=== PATIENT | female | born 1965 | race Hispanic/Latino ===

== ENCOUNTER → 2017-08-17 | Day surgery (SDC) | payer OTHER ==
--- NOTE | 2017-08-15 16:11 | Diagnostic Imaging Report ---
PROCEDURE: Frontal and lateral views of the chest. COMPARISON: Chest radiograph 03/11/2017 INDICATIONS: PRE-OP ON RIGHT SHOULDER FINDINGS: Lines/tubes: None. Lungs: The lungs are well inflated and clear. There is no evidence of pneumonia or pulmonary edema. Pleura: There is no pleural effusion or pneumothorax. Heart and mediastinum: The heart and the mediastinum are normal. Bones: No acute bony abnormality. IMPRESSION: No acute cardiopulmonary disease. Dictated by: Dae Macias M.D. on 08/15/2017 at 16:10 Electronically approved by: Dae Macias M.D. on 08/15/2017 at 16:10
[~2017-08-17] MED LIST: ALBUTEROL SULF 0.083% NEB SOLN 3 ML NEB ONE; CEFAZOLIN SOD 2 GM/D5W 50ML 50 ML IV ONE; DEXAMETHASONE SOD PHOS INJ 4 MG/ML VIAL ONE; ESMOLOL HCL 100MG/10ML 10 MG/ML VIAL ONE; FENTANYL CITRATE/PF 100MCG/2 ML INJ ONE; GLYCOPYRROLATE INJ 1MG/ 5 ML SYR ONE; KETOROLAC TROMETHAMINE 30 MG/ML VIAL ONE; LIDOCAINE 2% /EPINEPHRINE 20 ML SDV INJ ONE; LIDOCAINE HCL 2% LOCAL INJ 5 ML SDV VIAL INJ ONE; LOSARTAN POTASS25 MG PO; METFORMIN HCL500 MG PO; MIDAZOLAM HCL 2 MG/2 ML VIAL ONE; MONTELUKAST SOD10 MG PO; NEOSTIGMINE 5 MG/5ML SYR ONE; ONDANSETRON HCL INJ 2 MG/ML VIAL ONE; PANTOPRAZOLE SO40 MG PO; PHENYLEPHRINE HCL 1% 10 MG/ML VIAL ONE; PROPOFOL IV EMULSION 10 MG/ML 20 ML VIAL ONE; ROCURONIUM BROMIDE 10 MG/ML 5ML VIAL ONE; ROPIVACAINE 0.5% 5 MG/ML 30 ML SDV ONE; SEVOFLURANE INHAL SOLN 250 ML PEN BTL ONE; SIMVASTATIN20 MG PO; ULTRAM 50MG50 MG PO; VENLAFAXINE HCL75 M1 PO
--- OUTSIDE RECORDS SUMMARY | 2017-08-17 09:27 | XMS REPORT ---
[facility] Address Unknown Phone Unavailable Care Team Providers [employer] Compliance Manager Name Role Phone ANGELA PEREZ Unavailable Unavailable DANIEL ONTIVEROS Unavailable Unavailable Problems This patient has no known problems. Allergies, Adverse Reactions, Alerts This patient has no known allergies or adverse reactions. Medications This patient has no known medications. Results Test Description Test Time Test Comments Text Results Atomic Results Result Comments CHEST 2 VIEWS [place] [address] Patient Name: RACHEAL MCCORMICK MR #: [id number] : 1965 Age/Sex: 52/F Req #: [id number] [facility] Physician: Ordered by: ISAC SUAREZ MD Report #: [id number] Location: OR Room/Bed: Procedure: [id number] DX/CHEST 2 VIEWS Exam Date: 08/15/17 Exam Time: 1521 REPORT STATUS: Signed PROCEDURE: Frontal and lateral views of the chest. COMPARISON: Chest radiograph 03/11/2017 INDICATIONS: PRE-OP ON RIGHT SHOULDER FINDINGS: Lines/tubes: None. Lungs: The lungs are well inflated and clear. There is no evidence of pneumonia or pulmonary edema. Pleura: There is no pleural effusion or pneumothorax. Heart and mediastinum: The heart and the mediastinum are normal. Bones: No acute bony abnormality. IMPRESSION: No acute cardiopulmonary disease. Dictated by: Dae Grove M.D. on at 16:10 Electronically approved by: Dae Grove M.D. on 08/15 at 16:10 Dictated By: DAE GROVE MD 09 Transcribed By: MARISSA on 08/15/171609 COPY TO: ISAC SUAREZ MD CHEST SINGLE (PORTABLE) [place] [address] Patient Name: RACHEAL MCCORMICK MR #: [id number] : 1965 Age/Sex: 51/F Req #: [id number] Physician: Ordered by: DANIEL ONTIVEROS MD Report #: [id number] Location: ER Room/Bed: ___ Procedure: [id number] DX/CHEST SINGLE (PORTABLE) Exam Date: 03/10/17 Exam Time: 2355 REPORT STATUS: Signed CHEST SINGLE (PORTABLE), 03/10/2017 11:45 PM Technique: CHEST SINGLE (PORTABLE) Comparison: None available. Clinical history: Shortness of breath Findings: Mild lingular atelectasis or scarring. Otherwise unremarkable appearance of the heart, mediastinum, lungs and pleural spaces.. Impression: 1. Lines/Tubes: None 2. No acute abnormality. Signed by: Dr Sugey Enamorado MD on 03/11/2017 12:56 AM Dictated By: SUGEY ENAMORADO MD Transcribed By: MANDO on 03/11/1755 COPY TO: DANIEL ONTIVEROS MD
--- NOTE | 2017-08-18 07:54 | Operative Report ---
DATE OF PROCEDURE: August 17, 2017 PREOPERATIVE DIAGNOSES 1. Right shoulder rotator cuff tear. 2. Right shoulder acromioclavicular joint arthrosis. POSTOPERATIVE DIAGNOSES 1. Right shoulder arthrofibrosis. 2. Right shoulder synovitis. 3. Right shoulder rotator cuff tear. 4. Right shoulder acromioclavicular joint arthrosis. OPERATIONS/PROCEDURES PERFORMED 1. The patient underwent a right shoulder examination under anesthesia. 2. Right shoulder manipulation under anesthesia. 3. Right shoulder debridement of synovitis. 4. Right shoulder arthroscopic rotator cuff reconstruction. 5. Right shoulder arthroscopic subacromial decompression with acromioplasty. 6. Right shoulder arthroscopic distal clavicle resection. DATA MANAGEMENT CONSULTANT: Rafia Kennedy ANESTHESIA: General endotracheal intubation anesthesia. IV FLUIDS: Per anesthesia record. BLOOD LOSS: Less than 5 mL. BRIEF DESCRIPTION OF THE PATIENT'S OPERATIVE PROCEDURE: Ms. Granado was taken to the operating room and placed in the supine position on the operating table. Following induction of general anesthesia, as well as endotracheal intubation, the patient's table was converted to a beach chair type position. Examination of the right shoulder demonstrated no gross abnormalities. Passive range of motion of the shoulder joint demonstrated stiffness with forward flexion and abduction of the shoulder. Patient had approximately 145 degrees of passive motion of the shoulder. The shoulder was gently manipulated under anesthesia to restore full motion of the shoulder. Fibrous bands were felt to release during the manipulation. The patient's shoulder and upper extremity were then prepped and draped in the standard surgical fashion. Standard posterolateral and anterior portals were created without difficulty. The scope was placed within the shoulder joint atraumatically. Examination of the glenohumeral articulation demonstrated no significant chondromalacia. There was synovitis in the shoulder joint. There were no loose bodies in the shoulder. There was a partial thickness tear of the anterior leading edge of the rotator cuff tissue. The biceps tendon was found to be contained within the shoulder, and the labrum was firmly attached to the glenoid. A shaver was placed in the shoulder joint and the synovitis was debrided. The rotator cuff injury was also debrided at this time. An elevator was used to elevate the remaining attached fibers. A shaver was then used to debride the insertion site to a bleeding bony bed. The shoulder was inflated with sterile normal saline. The scope was placed in the subacromial space, and significant bursal inflammation was encountered. A lateral portal was created through an outside-in technique. A shaver was used to debride the insertion site further. An anterolateral accessory portal was created. An anchor was placed within the greater tuberosity of the humerus, and the suture arms from that anchor were then woven through the rotator cuff injury. The rotator cuff injury was then advanced into its normal insertion site and tied firmly. This resulted in complete repair of the patient's injury. The coracoacromial ligament was resected. An acromioplasty was performed. The anterior portal was then transferred into the subacromial space, and the shaver was then placed within the subacromial space through the anterior portal. A 1-cm section of the distal clavicle was then resected arthroscopically. The scope was transferred to the anterior portal to confirm completion of the distal clavicle resection. The shoulder was deflated of its sterile normal saline. The portal sites were dressed sterilely. The patient was provided a shoulder immobilizer, awakened and taken to the postanesthesia care in stable condition. Rafia Kennedy acted as geriatric assistant for this case and was necessary for both prepping and draping the patient, as well as positioning of the arm and passage of suture that allowed this case to be successful. Job#: [id number] HAM
== END | disposition home or self-care (01) ==
LOC: OR 09:24
PROVIDERS: ATTEND Specialist
DX: M75.111 Incomplete rotator cuff tear or rupture of right shoulder, not specified as traumatic (principal); M65.811 Other synovitis and tenosynovitis, right shoulder; M19.011 Primary osteoarthritis, right shoulder; M24.611 Ankylosis, right shoulder; J45.909 Unspecified asthma, uncomplicated; E11.9 Type 2 diabetes mellitus without complications; I10 Essential (primary) hypertension; E78.5 Hyperlipidemia, unspecified; K21.9 Gastro-esophageal reflux disease without esophagitis; F32.9 Major depressive disorder, single episode, unspecified; F17.210 Nicotine dependence, cigarettes, uncomplicated; Z01.810 Encounter for preprocedural cardiovascular examination; Z01.818 Encounter for other preprocedural examination; Z68.39 Body mass index [BMI] 39.0-39.9, adult; Z91.81 History of falling
CPT/HCPCS: 29824; 29826; 29827; 36415; 71046; 81025; 82948; 93005; J1100; J1885; J2001 ×2; J2250; J2370; J2405; J2795

== ENCOUNTER → 2018-05-31 | Outpatient (CLI) | payer OTHER ==
[~2018-05-31] MED LIST changes: -ALBUTEROL SULF 0.083% NEB SOLN 3 ML NEB ONE; -CEFAZOLIN SOD 2 GM/D5W 50ML 50 ML IV ONE; -DEXAMETHASONE SOD PHOS INJ 4 MG/ML VIAL ONE; -ESMOLOL HCL 100MG/10ML 10 MG/ML VIAL ONE; -FENTANYL CITRATE/PF 100MCG/2 ML INJ ONE; -GLYCOPYRROLATE INJ 1MG/ 5 ML SYR ONE; -KETOROLAC TROMETHAMINE 30 MG/ML VIAL ONE; -LIDOCAINE 2% /EPINEPHRINE 20 ML SDV INJ ONE; -LIDOCAINE HCL 2% LOCAL INJ 5 ML SDV VIAL INJ ONE; -MIDAZOLAM HCL 2 MG/2 ML VIAL ONE; -NEOSTIGMINE 5 MG/5ML SYR ONE; -ONDANSETRON HCL INJ 2 MG/ML VIAL ONE; -PHENYLEPHRINE HCL 1% 10 MG/ML VIAL ONE; -PROPOFOL IV EMULSION 10 MG/ML 20 ML VIAL ONE; -ROCURONIUM BROMIDE 10 MG/ML 5ML VIAL ONE; -ROPIVACAINE 0.5% 5 MG/ML 30 ML SDV ONE; -SEVOFLURANE INHAL SOLN 250 ML PEN BTL ONE
--- NOTE | 2018-06-08 08:25 | Diagnostic Imaging Report ---
#[id number] - [id number] #BILATERAL FIRST EVER DIGITAL SCREENING MAMMOGRAM WITH CAD: 05/31/2018 CLINICAL: Routine screening. Baseline exam. No prior exams were available for comparison. Current study contains 4 films. The tissue of both breasts is heterogeneously dense. This may lower the sensitivity of mammography. Current study was also evaluated with a Computer Aided Detection (CAD) system. There are benign calcifications in the left breast. No significant masses, calcifications, or other findings are seen in either breast. IMPRESSION: BENIGN There is no mammographic evidence of malignancy. A 1 year screening mammogram is recommended. The patient will be notified by letter of the results. Gurinder cuevas/kaden:06/07/2018 09:58:53 Post Acute Care Nurse Practitioner: Radha MERCEDES)(M), [facility] letter sent: Normal Exam Mammogram BI-RADS: 2 Benign
== END ==
LOC: CT 09:55
PROVIDERS: ATTEND Internal Medicine
DX: Z12.31 Encounter for screening mammogram for malignant neoplasm of breast (principal)
CPT/HCPCS: 77067

== ENCOUNTER → 2019-05-09 | Outpatient (CLI) | payer OTHER | LOC: MAMMO 14:03 | PROVIDERS: ATTEND Internal Medicine | DX: Z12.31 Encounter for screening mammogram for malignant neoplasm of breast (principal) | CPT/HCPCS: 77067 ==

== ENCOUNTER 2024-12-04 17:15 | Emergency (ER) | payer OTHER ==
[~2024-12-04] VITALS: Ht 154.9 cm; Wt 92.5 kg
[~2024-12-04 17:15] MED LIST changes: +CEFTRIAXON1 GM/50 M2 IV; +DEXMEDETOMIDINE IV; +DEXTROSE 50%-WA50 M1 IV; +HUMULIN R100 UNIT/2 SQ; +HYDRALAZIN20 MG/1 ML IV; +Hydromorphone 1MG/1ML Inj IV; +Levalbuterol Hcl Soln Nebu INH; +METOCLOPRAMID5 MG/ML IV; +Methylprednisolone Sod Succ IV; +Metoprolol Tartrate Inj IV; +PROPOFOL10 MG/1 ML IV; +SYMBICORT 16010.2 GM INH; +Sodium Chloride Flush INJ; +ZOLPIDEM TARTRAT5 MG PO
[2024-12-04 17:55] VITALS: TEMP 98.8
[2024-12-04 18:29] LABS: BASOPHILS # (AUTO) 0.1 (0.0-0.1); BASOPHILS % 0.6 % (0.0-1.0); EOSINOPHILS # (AUTO) 0.3 (0.0-0.4); EOSINOPHILS % 2.7 % (0.0-6.0); HEMATOCRIT 48.3 % (34.2-44.1); HEMOGLOBIN 15.8 g/dL (12.0-16.0); LYMPHOCYTES # (AUTO) 1.7 (1.0-3.2); LYMPHOCYTES % 16.7 % (18.0-39.1); MEAN CORPUSCULAR HEMOGLOBIN 32.7 pg (28-32); MEAN CORPUSCULAR HGB CONC 32.7 g/dL (31-35); MONOCYTES # (AUTO) 1.2 (0.2-0.8); MONOCYTES % 11.7 % (4.4-11.3); NEUTROPHILS # (AUTO) 6.9 (2.1-6.9); NEUTROPHILS % 67.9 % (38.7-80.0); PLATELET COUNT 258 x10e3/uL (140-360); RED BLOOD COUNT 4.83 x10e6/uL (3.6-5.1); RED CELL DISTRIBUTION WIDTH 13.4 % (11.7-14.4); WHITE BLOOD COUNT 10.17 x10e3/uL (4.8-10.8)
[2024-12-04] MEDS: SODIUM CHLORIDE 0.9% 1000ML 1,000 ML IV ONE (18:38)
[2024-12-04] MEDS: METHYLPREDNISOLONE SOD SUCC 125 MG/2ML VIAL IV ONE (18:38)
[2024-12-04 18:41] LABS: ALBUMIN 3.4 g/dL (3.5-5.0); BILIRUBIN,TOTAL 0.3 mg/dL (0.2-1.2); CALCIUM 9.7 mg/dL (8.4-10.2); CREATININE, SERUM 0.89 mg/dL (0.57-1.11); TOTAL PROTEIN 6.9 g/dL (6.5-8.1)
[2024-12-04 19:18] LABS: CORONAVIRUS COVID-19 AG NEGATIVE (NEGATIVE); INFLUENZA A AG NEGATIVE (NEGATIVE); INFLUENZA B AG NEGATIVE (NEGATIVE)
[2024-12-04] MEDS: IPRATROPIUM BROMIDE 0.02% 2.5 ML NEB NEB ONE (19:21)
[2024-12-04] MEDS: ALBUTEROL SULF 0.083% NEB SOLN 3 ML NEB NEB STA (19:22)
[2024-12-04] MEDS ORDERED: ALBUTEROL1.25 MG/3 NEB (19:51)
[2024-12-04] MEDS ORDERED: DOXYCYCLINE HY100 MG PO (19:51)
[2024-12-04] MEDS ORDERED: MEDROL4 M2 PO (19:51)
[2024-12-04] MEDS ORDERED: VENTOLIN HFA18 GM INH (19:51)
[2024-12-04 20:10] VITALS: PULSE 117; RESP 22
[2024-12-04 20:29] VITALS: BP 180/115; PULSE 119; RESP 22; O2SAT 98
== END 2024-12-04 20:33 | disposition home or self-care (01) ==
LOC: ER 18:10
DX: R06.02 Shortness of breath (principal); J44.1 Chronic obstructive pulmonary disease with (acute) exacerbation; J40 Bronchitis, not specified as acute or chronic; R05.9 Cough, unspecified; I10 Essential (primary) hypertension; E78.5 Hyperlipidemia, unspecified; F32.A Depression, unspecified; Z11.52 Encounter for screening for COVID-19; R94.31 Abnormal electrocardiogram [ECG] [EKG]
CPT/HCPCS: 36415; 71045; 80053; 83605; 84484; 85025; 87040; 87428; 93005; 99284; J0696; J2919; J7030